=== PATIENT | male | born 1995 | race African-American/Black ===

== ENCOUNTER 2019-03-26 10:41 | Emergency (ER) | payer SELFPAY ==
[~2019-03-26] VITALS: Ht 165.1 cm; Wt 54.4 kg
[2019-03-26] MEDS ORDERED: FLUORESCEIN SOD(OPTH) 1 MG STRP ONE (11:12)
[2019-03-26] MEDS ORDERED: EYE IRRIGATION (OPTH) 120 ML BTL OP ONE (11:15)
[2019-03-26] MEDS ORDERED: GENTAK3.5 GM EXT (11:25)
--- OUTSIDE RECORDS SUMMARY | 2019-04-02 11:52 | XMS REPORT ---
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 Allergies, Adverse Reactions, Alerts Allergy Name Allergy Type Status Severity Reaction(s) Onset Date Inactive Date Treating Clinician Comments No Known Allergies DA Active U 2018-07-09 00:00:00 Medications This patient has no known medications. Results Test Description Test Time Test Comments Text Results Atomic Results Result Comments - XR CHEST 1 V 2018-07-09 20:22:00 Name: BRANDY OLIVA : 11/04/1985 Age/S: 32 / M [address] Unit #: [id number] Loc: [place] [address] Phys: Carolyne Valverde MD Acct: [id number] Dis Date: Status: REG ER PHONE #: [phone] Exam Date: 07/09/20181940 FAX #: Reason: CP EXAMS: CPT: [id number] XR CHEST 1 V 53961 Fluoro Time: DAP (Gy m2): Air Kerma (mGy): Location code: B2 Chest 1 view Indication: CP. Comparison: None Findings: The heart and mediastinum are not remarkable. Costophrenic angles are clear. Lungs are clear. Bone is unremarkable for age. Impression: 1. No radiographic evidence of acute cardiopulmonary disease. at 2021 Reported and signed by: Bernard Jeffers M.D. CC: Carolyne Valverde MD PAGE 1 Signed Report Name: BRANDY OLIVA [place] : 11/04/1985 Age/S: 32 / M [address] Unit #: [id number] Loc: [place] [address] Phys: Carolyne Valverde MD Acct: [id number] Dis Date: Status: REG ER PHONE #: [phone] Exam Date: 07/09/20181940 FAX #: Reason: CP EXAMS: CPT: [id number] XR CHEST 1 V 77708 Fluoro Time: DAP (Gy m2): Air Kerma (mGy): <Continued> Technologist: Yonny Park RT(R) Trnscb Date/Time: 07/09/2018 (2021) [email or web address] Orig Print D/T: S: 07/09/2018 (2024) PAGE 2 Signed Report
== END 2019-03-26 11:41 | disposition home or self-care (01) ==
LOC: FSED 10:41
DX: S05.01XA Injury of conjunctiva and corneal abrasion without foreign body, right eye, initial encounter (principal); Y92.008 Other place in unspecified non-institutional (private) residence as the place of occurrence of the external cause
CPT/HCPCS: 99283